=== PATIENT | male | born 1980 | race Asian ===

== ENCOUNTER 2019-05-01 17:30 | Emergency (ER) | payer MEDICAID ==
[~2019-05-01] VITALS: Ht 172.7 cm; Wt 90.7 kg
[2019-05-01 17:32] VITALS: BP_SYST 132
--- NOTE | 2019-05-01 17:38 | NUR ---
Patient to ER bed 5 to gown for evaluation. Side rails up.
--- NOTE | 2019-05-01 17:40 | NUR ---
ER at bedside examining patient.
--- NOTE | 2019-05-01 17:47 | NUR ---
pt arrives from home w/ c/o sheeba groin swelling. pt is currently aefbrile. No other c/o at the moment
[2019-05-01 18:10] LABS: BASOPHILS % (AUTO) 0.6 % (0.0-2.0); EOSINOPHILS # (AUTO) 0.5 K/uL (0.0-0.4); EOSINOPHILS % (AUTO) 6.4 % (0.0-4.0); HEMATOCRIT 44.5 % (36-54); MEAN CORPUSCULAR HEMOGLOBIN 31 pg (27-31); MEAN CORPUSCULAR HGB CONC 34 % (32-36); MEAN CORPUSCULAR VOLUME 93 fL (79.0-98.0); MONOCYTES # (AUTO) 0.4 K/uL (0.0-1.0); MONOCYTES % (AUTO) 5.7 % (1.7-9.3); NEUTROPHILS # (AUTO) 4.3 K/uL (1.8-7.7); NEUTROPHILS % (AUTO) 59.3 % (40.0-70.0); PLATELET COUNT (AUTO) 320 K/uL (130-430); RED BLOOD CELL COUNT(AUTO) 4.81 MIL/uL (4.2-6.2); RED CELL DISTRIBUTION WIDTH 13.1 % (9.0-15.0); WHITE BLOOD COUNT (AUTO) 7.3 K/uL (4.8-10.8)
[2019-05-01 18:22] LABS: CALCIUM 8.7 mg/dL (8.4-11.0); CREATININE 0.92 mg/dL (0.55-1.30); POTASSIUM 3.9 mmol/L (3.5-5.1)
[2019-05-01 18:28] LABS: ALBUMIN 3.8 g/dL (3.4-4.8); TOTAL BILIRUBIN 0.2 mg/dL (0.0-1.0)
[2019-05-01 18:34] LABS: INR 0.9 (0.80-1.20); PROTHROMBIN TIME 9.3 SECS (9.5-12.5)
--- NOTE | 2019-05-01 19:10 | NUR ---
Patient given written and verbal discharge instructions and verbalizes understanding. ER MD discussed with patient the results and treatment provided. Patient in stable condition. ID arm band removed. Rx of Lotrisone given. Patient educated on pain management and to follow up with PMD. Pain Scale0/10 Opportunity for questions provided and answered. Medication side effect fact sheet provided.
[2019-05-01 19:13] VITALS: BP_SYST 132
== END 2019-05-01 19:10 | disposition home or self-care (01) ==
LOC: SED 17:30
DX: B35.6 Tinea cruris (principal)
CPT/HCPCS: 36415; 80053; 85025; 85610-TC; 85730-TC; 99283

== ENCOUNTER 2022-09-28 08:14 | Emergency (ER) | payer MEDICAID ==
[~2022-09-28] VITALS: Ht 172.7 cm; Wt 88.5 kg
[2022-09-28 08:30] VITALS: BP_SYST 126
[2022-09-28] MEDS ORDERED: CEPH-548 PO (08:49)
[2022-09-28] MEDS ORDERED: IBUP-1969 PO (08:49)
[2022-09-28 10:58] VITALS: BP_SYST 126
== END 2022-09-28 09:05 | disposition home or self-care (01) ==
LOC: SED 08:14
DX: H00.011 Hordeolum externum right upper eyelid (principal); H02.841 Edema of right upper eyelid; Z79.899 Other long term (current) drug therapy
CPT/HCPCS: 99283

== ENCOUNTER 2023-12-23 16:04 | Emergency (ER) | payer MEDICAID ==
[~2023-12-23] VITALS: Ht 172.7 cm; Wt 90.7 kg
[~2023-12-23 16:04] MED LIST: CEPH-548 PO; IBUP-1969 PO
[2023-12-23 16:20] VITALS: BP_SYST 133; PULSE 68; RESP 20; TEMP 97.1; O2SAT 97
[2023-12-23] MEDS: KETOROLAC TROMETHAMINE 60 MG/2 ML VIAL IM ONE (16:40)
[2023-12-23] MEDS ORDERED: IBUP-1971 PO (17:35)
[2023-12-23] MEDS ORDERED: HYDR-3927 PO (17:35)
[2023-12-23] MEDS: MORPHINE 4 MG INJ. 4 MG/ML VIAL IM ONE (17:57)
[2023-12-23] MEDS: MORPHINE 2 MG/ML INJ. SYRINGE IM ONE (17:57)
[2023-12-23 18:00] VITALS: BP_SYST 133; PULSE 68; RESP 20; TEMP 97.1; O2SAT 97
== END 2023-12-23 18:00 | disposition home or self-care (01) ==
LOC: SED 16:04
DX: M54.50 Low back pain, unspecified (principal); Z79.899 Other long term (current) drug therapy; Z79.2 Long term (current) use of antibiotics
CPT/HCPCS: 99284; 72100; 96372; J1885; J2270 ×2